=== PATIENT | male | born 1990 | race Two or more races ===

== ENCOUNTER → 2016-08-22 | Outpatient (REF) | payer OTHER | LOC: M SMT 12:59 | PROVIDERS: ATTEND Nurse Practitioner Family | DX: R30.0 Dysuria (principal) ==

== ENCOUNTER → 2017-01-09 | Outpatient (REF) | payer OTHER ==
[2017-01-09 13:45] LABS: IMMOTILITY 65 %; NON PROGRESSIVE MOTILITY (c) 9 %; PROGRESSIVE MOTILITY (a) 26 % (>=32); TOTAL MOTILITY 35 % (>=40)
[2017-01-09 13:46] LABS: % NORMAL FORMS 5 % (>=4); TOTAL FUNCTIONAL 29.6 M/Ejac.; TOTAL PROGRESSIVE SPERM 239.5 M/Ejac.
== END ==
LOC: M SMT 12:57
PROVIDERS: ATTEND Urology
DX: N53.12 Painful ejaculation (principal)